=== PATIENT | female | born 1990 | race Caucasian/White ===

== ENCOUNTER 2019-06-02 19:19 | Emergency (ER) | payer SELFPAY ==
--- OUTSIDE RECORDS SUMMARY | 2019-06-02 19:22 | XMS REPORT | Summary of Care ---
:1990 Author Organization [facility] - [facility] Address [address] [place] [id number] Care Team Providers Name Role Phone Pcp, Patient Does Not Have A Primary Care Provider Reason for Visit Reason Comments Ear Pain Sore Throat Auth/Cert Status Reason Specialty Diagnoses / Referred By Referred To Procedures Contact Contact [facility] [address] [place] [address] [place] [address] Encounter Details Date Type Department Care Team Description 02/07/2019 Emergency [facility] Allen Weiss DO Strep pharyngitis (Primary Dx); Department [address] [place] [address]. Pharyngitis, unspecified etiology [address] [place] [address] [address] [place] [address] [place], [place] [id number] Allergies No Known Allergiesdocumented as of this encounter (statuses as of 02/07/2019) Medications Medication Sig Dispensed Refills Start Date End Date Status benzocaine-menthol Take 1 Lozenge by 30 Lozenge 0 02/07/2019 Active (CEPACOL SORE THROAT, mouth every 4 FREDRICK-MEN,) (four) hours as lozengeIndications: needed for Sore Strep pharyngitis throat. documented as of this encounter (statuses as of 02/07/2019) Active Problems Not on filedocumented as of this encounter (statuses as of 02/07/2019) Social History Tobacco Use Types Packs/Day Years Used Date Never Assessed Sex Assigned at Date Recorded Not on file Job Start Date Occupation Industry Not on file Not on file Not on file Travel History Travel Start Travel End No recent travel history available. documented as of this encounter Last Filed Vital Signs Vital Sign Reading Time Taken Comments Blood Pressure 140/78 02/07/2019 9:26 AM CDT Pulse 100 02/07/2019 9:26 AM CDT Temperature 36.9 C (98.5 F) 02/07/2019 9:26 AM CDT Respiratory Rate 18 02/07/2019 9:26 AM CDT Oxygen Saturation 99% 02/07/2019 9:26 AM CDT Inhaled Oxygen Concentration - - Weight 106.6 kg (235 lb) 02/07/2019 9:26 AM CDT Height 162.6 cm (5' 4") 02/07/2019 9:26 AM CDT Body Mass Index 40.34 02/07/2019 9:26 AM CDT documented in this encounter Discharge Instructions Allen Flores DO - 02/07/2019 DIAGNOSIS Diagnoses that have been ruled out: None Diagnoses that are still under consideration: None Final diagnoses: Pharyngitis, unspecified etiology Strep pharyngitis NO LIFE-THREATENING FINDINGS ON TODAY'S EXAM. PROCEDURES IN THE ER TODAY: Orders Placed This Encounter Procedures RAPID STREP SCREEN FOR GROUP A MEDICATIONS ADMINISTERED IN THE ER TODAY AND DISCHARGE MEDICATIONS: Orders Placed This Encounter Medications dexamethasone (DECADRON PHOSPHATE) injection 10 mg penicillin g benzathine (BICILLIN L-A) injection 1.2 Million Units FOLLOW-UP RECOMMENDATIONS: RECOMMEND FOLLOW-UP WITH A PRIMARY CARE PROVIDER OR SPECIALIST IN 2-5 DAYS, ESPECIALLY IF NO IMPROVEMENT IN SYMPTOMS. MAY FOLLOW-UP WITH A PROVIDER OF YOUR CHOICE, SUCH : 1. A PHYSICIAN OF YOUR CHOICE 2. [facility], . LOCATIONS IN [facility] 3. [facility], [address] [place] [address]; OR, IF YOU WISH TO FOLLOW-UP WITHIN THE [facility], MAY TRY THESE OPTIONS (CLINIC APPOINTMENTS AVAILABLE ON VPOK-LM-REPT BASIS): 1. SCHEDULE AN APPOINTMENT ONLINE AT [email or web address] 2. OR CALL THE [facility] AT OR 3. OR CALL YOUR [facility] PHYSICIAN'S OFFICE DIRECTLY IF YOU ARE ALREADY AN ESTABLISHED [facility] PATIENT. RETURN TO ER FOR WORSENING OF SYMPTOMS. AttachmentsThe following attachments cannot be sent through Care Everywhere.Strep Throat (Norwegian)documented in this encounter Plan of Treatment Health Maintenance Due Date Last Done Comments VARICELLA VACCINES (1 of 2 - 13+ 01/30/2005 2-dose series) DTaP,Tdap,and Td Vaccines (1 - 01/30/2011 Tdap) PAP SMEAR 01/30/2013 INFLUENZA VACCINE 03/16/2019 PNEUMOCOCCAL 0-64 YEARS COMBINED Aged Out No longer eligible based on SERIES patient's age to complete this topic documented as of this encounter Procedures Procedure Name Priority Date/Time Associated Diagnosis Comments RAPID STREP SCREEN STAT 02/07/2019 10:10 AM Pharyngitis, Results for this FOR GROUP A CDT unspecified etiology procedure are in the results section. NOTICE OF PRIVACY Routine 02/07/2019 9:22 AM PRACTICES CDT CONSENT/REFUSAL FOR Routine 02/07/2019 9:21 AM DIAGNOSIS AND CDT TREATMENT documented in this encounter Results RAPID STREP SCREEN FOR GROUP A (02/07/2019 10:10 AM CDT) Streptococcus pyogenes Positive (A) Negative [facility] (group A) antigen HOSPITAL LABORATORY Specimen Swab - THROAT Performing Organization Address City/State/Zipcode Phone Number [facility] CLIA: [id number], [address] [place] [address] documented in this encounter Visit Diagnoses Diagnosis Strep pharyngitis - Primary Streptococcal sore throat Pharyngitis, unspecified etiology documented in this encounter Administered Medications Medication Order MAR Action Action Date Dose Rate Site dexamethasone (DECADRON PHOSPHATE) Given 02/07/2019 10:10 AM CDT 10 mg injection 10 mg 10 mg, Oral, ONCE, 1 dose, Sun02/07/19 at 1100, Routine penicillin g benzathine Given 02/07/2019 10:57 1.2 Million Left Dorsogluteal-IM (BICILLIN L-A) AM CDT Units injection 1.2 Million Units 1.2 Million Units, Intramuscular, ONCE, 1 dose, Sun02/07/19 at 1145, JOSE, Reason for Anti-Infective: Documented Infection, Documented Infection Site: HEENT, Duration of Therapy: 7 days documented in this encounter
--- OUTSIDE RECORDS SUMMARY | 2019-06-02 19:22 | XMS REPORT ---
:1990 [facility] Address [address] [place] [address] Dr. Tomlinson [address] [place] [id number] Care Team Providers Name Role Phone Unavailable Unavailable Unavailable Problems This patient has no known problems. Allergies, Adverse Reactions, Alerts This patient has no known allergies or adverse reactions. Medications This patient has no known medications.
[2019-06-02] MEDS ORDERED: ACETAMINOPHEN 500 MG TAB ONE (20:19)
[2019-06-02] MEDS ORDERED: KETOROLAC 30 MG/ML INJ ONE (20:19)
[2019-06-02] MEDS ORDERED: PEN G BENZ LA 1.2MU/2ML SYRINGE IM ONE (20:34)
--- NOTE | 2019-06-02 20:53 | EDPHYS ---
Physician Documentation [facility] Name: Lila Nieto Age: 29 yrs Sex: Female : 1990 Arrival Date: 06/02/2019 Time: 19:21 Bed 25 Private MD: ED Physician Angel Polanco HPI: 06/02 21:11 This 29 yrs old Female presents to ER via Ambulatory with complaints of Flu tw4 Symptoms. 21:11 The patient or guardian reports flu symptoms, low-grade fever, myalgias. Onset: The tw4 symptoms/episode began/occurred this morning, today. Modifying factors: The symptoms are alleviated by nothing. the symptoms are aggravated by nothing. Associated signs and symptoms: The patient has no apparent associated signs or symptoms. Severity of symptoms: At their worst the symptoms were moderate in the emergency department the symptoms are unchanged. The patient has not experienced similar symptoms in the past. WRAPPER OFF: 19:30 LMP 05/30/2019 ss Historical: - Allergies: 19:30 Iodine; ss - Home Meds: 19:30 None [Active]; ss - PMHx: 19:30 None; ss - PSHx: 19:30 bilateral feet; ss - Immunization history:: Adult Immunizations up to date. - Social history:: Smoking status: Patient uses tobacco products, denies chronic smoking, but will smoke occasionally. - Ebola Screening: : Patient denies exposure to infectious person Patient denies travel to an Ebola-affected area in the 21 days before illness onset. ROS: 21:11 Eyes: Negative for injury, pain, redness, and discharge. tw4 21:11 Cardiovascular: Negative for chest pain, palpitations, and edema, Respiratory: Negative for shortness of breath, cough, wheezing, and pleuritic chest pain, Abdomen/GI: Negative for abdominal pain, nausea, vomiting, diarrhea, and constipation, Back: Negative for injury and pain, MS/Extremity: Negative for injury and deformity, Skin: Negative for injury, rash, and discoloration, Neuro: Negative for headache, weakness, numbness, tingling, and seizure. 21:11 Constitutional: Positive for body aches, fatigue, fever, malaise. Exam: 21:11 Constitutional: This is a well developed, well nourished patient who is awake, alert, tw4 and in no acute distress. Head/Face: Normocephalic, atraumatic. Chest/axilla: Normal chest wall appearance and motion. Nontender with no deformity. No lesions are appreciated. Cardiovascular: Regular rate and rhythm with a normal S1 and S2. No gallops, murmurs, or rubs. Normal PMI, no JVD. No pulse deficits. Respiratory: Lungs have equal breath sounds bilaterally, clear to auscultation and percussion. No rales, rhonchi or wheezes noted. No increased work of breathing, no retractions or nasal flaring. Abdomen/GI: Soft, non-tender, with normal bowel sounds. No distension or tympany. No guarding or rebound. No evidence of tenderness throughout. Skin: Warm, dry with normal turgor. Normal color with no rashes, no lesions, and no evidence of cellulitis. MS/ Extremity: Pulses equal, no cyanosis. Neurovascular intact. Full, normal range of motion. Neuro: Awake and alert, GCS 15, oriented to person, place, time, and situation. Cranial nerves II-XII grossly intact. Motor strength 5/5 in all extremities. Sensory grossly intact. Cerebellar exam normal. Normal gait. 21:11 ENT: External ear(s): are unremarkable, Ear canal(s): are normal, TM's: Posterior pharynx: erythema, that is moderate. Vital Signs: 19:30 BP 159 / 91; Pulse 129; Resp 15; Temp 101.1(O); Pulse Ox 97% on R/A; Weight 106.59 kg; ss Height 5 ft. 4 in. (162.56 cm); Pain 10/10; 21:19 Pulse 108; Resp 26; Pulse Ox 100% on R/A; aj1 19:30 Body Mass Index 40.34 (106.59 kg, 162.56 cm) ss MDM: 19:38 Patient medically screened. tw4 21:11 Differential diagnosis: obstructed airway, tracheal injury. Antibiotic administration: tw4 The patient is discharged and will get outpatient antibiotics. Data reviewed: vital signs, nurses notes. Data reviewed: lab test result(s), Flu: negative strep positive. Counseling: I had a detailed discussion with the patient and/or guardian regarding: the historical points, exam findings, and any diagnostic results supporting the discharge/admit diagnosis. Special discussion: I discussed with the patient/guardian in detail that at this point there is no indication for admission to the hospital. It is understood, however, that if the symptoms persist or worsen the patient needs to return immediately for re-evaluation. 06/02 19:37 Order name: Flu fc 06/02 19:37 Order name: Strep; Complete Time: 20:26 fc Administered Medications: 20:23 Drug: Tylenol 1000 mg Route: PO; aj1 20:39 Follow up: Response: No adverse reaction aj1 :23 Drug: TORadol 60 mg Route: IM; Site: left gluteus; aj1 20:39 Follow up: Response: No adverse reaction aj1 20:39 Drug: Bicillin L-A 1.2 million units Route: IM; Site: right gluteus; aj1 :18 Follow up: Response: No adverse reaction aj1 Disposition: 06/02/19 20:52 Discharged to Home. Impression: Streptococcal pharyngitis. - Condition is Stable. - Discharge Instructions: Fever, Adult, Pharyngitis, Strep Throat. - Prescriptions for Ibuprofen 800 mg Oral Tablet - take 1 tablet by ORAL route every 8 hours As needed take with food; 30 tablet. - Medication Reconciliation Form, Thank You Letter, Antibiotic Education, Prescription Opioid Use form. - Follow up: Private Physician; When: Upon discharge from the Emergency Department; Reason: Recheck today's complaints, Continuance of care. - Problem is new. - Symptoms have improved. Signatures: Dispatcher [employer] EDNella Bernstein RN RN aj1 Lila Salter RN RN Angel Polanco MD MD tw4 Corrections: (The following items were deleted from the chart) 21:20 20:52 06/02/2019 20:52 Discharged to Home. Impression: Streptococcal pharyngitis. aj1 Condition is Stable. Forms are Medication Reconciliation Form, Thank You Letter, Antibiotic Education, Prescription Opioid Use. Follow up: Private Physician; When: Upon discharge from the Emergency Department; Reason: Recheck today's complaints, Continuance of care. Problem is new. Symptoms have improved. tw4
--- NOTE | 2019-06-02 20:53 | ER ---
Nurse's Notes [facility] Name: Lila Nieto Age: 29 yrs Sex: Female : 1990 Arrival Date: 06/02/2019 Time: 19:21 Bed 25 Private MD: Diagnosis: Streptococcal pharyngitis Presentation: 06/02 19:27 Presenting complaint: Patient states: Body aches, cold sweats and hot flashes that ss began at 1200 today. Fever began 1 hour ago TMAX 101.9. Transition of care: patient was not received from another setting of care. Onset of symptoms was June 02, 2019. Risk Assessment: Do you want to hurt yourself or someone else? Patient reports no desire to harm self or others. Initial Sepsis Screen: Does the patient meet any 2 criteria? Temp <36.0*C (96.8*F)) or > 38.3*C (100.9*F). HR > 90 bpm. Does the patient have a suspected source of infection? No. Patient's initial sepsis screen is negative. Care prior to arrival: None. 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 - Social history:: Smoking status: Patient uses tobacco products, denies chronic smoking, but will smoke occasionally. - Ebola Screening: : Patient denies exposure to infectious person Patient denies travel to an Ebola-affected area in the 21 days before illness onset. Screenin:45 Abuse screen: Denies threats or abuse. Denies injuries from another. Nutritional aj1 screening: No deficits noted. Tuberculosis screening: No symptoms or risk factors identified. 21:19 Fall Risk None identified. aj1 Assessment: 19:45 General: Appears in no apparent distress. uncomfortable, Behavior is calm, cooperative, aj1 appropriate for age, Reports feeling ill for 2-3 days, fatigue for 2-3 days. Pain: Complains of pain in generalized body aches. Neuro: Level of Consciousness is awake, alert, obeys commands, Oriented to person, place, time, situation. Cardiovascular: Patient's skin is warm and dry. Respiratory: Airway is patent Respiratory effort is even, unlabored, Respiratory pattern is regular, symmetrical. GI: No signs and/or symptoms were reported involving the gastrointestinal system. : No signs and/or symptoms were reported regarding the genitourinary system. EENT: Throat is reddened bilaterally Reports nasal congestion nasal discharge. Derm: No signs and/or symptoms reported regarding the dermatologic system. Skin is pink, warm \T\ dry. normal. Musculoskeletal: No signs and/or symptoms reported regarding the musculoskeletal system. Circulation, motion, and sensation intact. Vital Signs: 19:30 BP 159 / 91; Pulse 129; Resp 15; Temp 101.1(O); Pulse Ox 97% on R/A; Weight 106.59 kg; ss Height 5 ft. 4 in. (162.56 cm); Pain 10/10; 21:19 Pulse 108; Resp 26; Pulse Ox 100% on R/A; aj1 19:30 Body Mass Index 40.34 (106.59 kg, 162.56 cm) ED Course: 19:21 Patient arrived in ED. cf2 19:29 Triage completed. ss 19:30 Arm band placed on right wrist. ss 19:32 Nella Muniz, RN is Primary Nurse. aj1 19:38 Angel Polanco MD is Attending Physician. tw4 19:45 Patient has correct armband on for positive identification. Bed in low position. Call aj1 light in reach. Side rails up X 1. 19:45 No provider procedures requiring assistance completed. aj1 21:19 Patient did not have IV access during this emergency room visit. aj1 Administered Medications: 20:23 Drug: Tylenol 1000 mg Route: PO; aj1 20:39 Follow up: Response: No adverse reaction aj1 20:23 Drug: TORadol 60 mg Route: IM; Site: left gluteus; aj1 20:39 Follow up: Response: No adverse reaction aj1 20:39 Drug: Bicillin L-A 1.2 million units Route: IM; Site: right gluteus; aj1 21:18 Follow up: Response: No adverse reaction aj1 Outcome: 20:52 Discharge ordered by . tw4 21:19 Discharged to home ambulatory. aj1 21:19 Condition: good 21:19 Discharge instructions given to patient, Instructed on discharge instructions, follow up and referral plans. medication usage, Demonstrated understanding of instructions, follow-up care, medications, Prescriptions given X 1. 21:20 Patient left the ED. aj1 Signatures: Nella Muniz RN RN aj1 Lila Salter RN RN Angel Polanco MD MD tw4 Rashad Lira 2
[2019-06-03 00:37] VITALS: BP 159/91; TEMP 101.1
[2019-06-03 00:38] VITALS: O2SAT 100
== END 2019-06-02 21:20 | disposition home or self-care (01) ==
LOC: ER 19:19
DX: J02.0 Streptococcal pharyngitis (principal); Z72.0 Tobacco use; Z91.048 Other nonmedicinal substance allergy status
CPT/HCPCS: 87081; 87804; 96372; 99283; J0561

== ENCOUNTER 2020-05-17 14:31 | Emergency (ER) | payer SELFPAY ==
[2020-05-17] MEDS ORDERED: ACETAMINOPHEN 325 MG TABLET ONE (17:07)
[2020-05-17] MEDS ORDERED: CEFTRIAXONE 1000 MG/VIAL ONE (17:29)
[2020-05-17] MEDS ORDERED: AZITHROMYCIN 250 MG TAB ONE (17:32)
[2020-05-17] MEDS ORDERED: LIDOCAINE 1% MPF 2 ML AMPULE ONE (17:34)
--- NOTE | 2020-05-17 17:40 | ER ---
Nurse's Notes [facility] Name: Lila Nieto Age: 30 yrs Sex: Female : 1990 Arrival Date: 05/17/2020 Time: 14:34 Bed 15 Private MD: Diagnosis: Fever, unspecified;Acute upper respiratory infection, unspecified Presentation: 05/17 14:46 Chief complaint: Patient states: nasal drainage, sore throat, generalized weakness x 2 sv days. Coronavirus screen: Client denies travel out of the [place] in the last 14 days. Client presents with at least one sign or symptom that may indicate coronavirus-19. Standard/surgical mask placed on the client. Provider contacted for isolation considerations. Ebola Screen: No symptoms or risks identified at this time. Risk Assessment: Do you want to hurt yourself or someone else? Patient reports no desire to harm self or others. Onset of symptoms was May 15, 2020. 14:46 Method Of Arrival: Ambulatory sv 14:46 Acuity: STUART 3 sv 14:47 Initial Sepsis Screen: Does the patient meet any 2 criteria? HR > 90 bpm. No. Patient's sv initial sepsis screen is negative. Does the patient have a suspected source of infection? No. Patient's initial sepsis screen is negative. Triage Assessment: 14:50 General: Appears in no apparent distress. comfortable, Behavior is calm, cooperative, sv appropriate for age. EENT: Reports nasal discharge pain when swallowing. Neuro: Level of Consciousness is awake, alert, obeys commands, Oriented to person, place, time, situation, Gait is steady. Respiratory: Respiratory effort is even, unlabored. Historical: - Allergies: 14:46 Iodine; sv 14:46 Morphine; sv 14:46 hydromorphone HCl; sv - PSHx: 14:46 bilateral feet; sv - Immunization history:: Adult Immunizations unknown. - Social history:: Smoking status: Patient reports the use of cigarette tobacco products, denies chronic smoking, but will smoke occasionally. - Family history:: not pertinent. Screenin:47 Abuse screen: Denies threats or abuse. Denies injuries from another. Nutritional zb screening: No deficits noted. Tuberculosis screening: No symptoms or risk factors identified. Fall Risk None identified. Assessment: 16:44 General: Appears in no apparent distress. comfortable, well groomed, Behavior is calm, zb cooperative, appropriate for age, Reports fatigue for 1-2 days, Denies fever. Pain: Denies pain. Neuro: No deficits noted. Level of Consciousness is awake, alert, obeys commands, Oriented to person, place, time, situation. Cardiovascular: No deficits noted. Denies chest pain, shortness of breath. Respiratory: Airway is patent Trachea midline Respiratory effort is even, unlabored, Respiratory pattern is regular. GI: No deficits noted. No signs and/or symptoms were reported involving the gastrointestinal system. Patient currently denies diarrhea, intolerance of fluids, intolerance of food. : No deficits noted. No signs and/or symptoms were reported regarding the genitourinary system. EENT: Throat is reddened bilaterally. Derm: Skin is intact, is healthy with good turgor, Skin is pink, warm \T\ dry. Skin temperature is warm. Musculoskeletal: Circulation, motion, and sensation intact. Capillary refill < 3 seconds, in bilateral fingers. 18:00 Reassessment: Patient appears in no apparent distress at this time. Patient and/or ph family updated on plan of care and expected duration. Pain level reassessed. Patient is alert, oriented x 3, equal unlabored respirations, skin warm/dry/pink. Vital Signs: 14:47 BP 149 / 103; Pulse 100; Resp 16; Temp 99.3; Pulse Ox 100% ; Weight 111.13 kg; Height 5 sv ft. 4 in. (162.56 cm); 17:03 BP 137 / 100; Pulse 105; Resp 18; Pulse Ox 95% on R/A; ph 18:00 BP 124 / 89; Pulse 87; Resp 18; Temp 98.0; Pulse Ox 99% on R/A; ph 14:47 Body Mass Index 42.05 (111.13 kg, 162.56 cm) sv ED Course: 14:34 Patient arrived in ED. ds1 14:44 Arm band placed on. sv 14:47 Triage completed. sv 16:21 Ronnell Conte MD is Attending Physician. marion 16:43 Tori Stewart RN is Primary Nurse. zb 16:47 Patient has correct armband on for positive identification. Bed in low position. Call zb light in reach. Side rails up X 1. Pulse ox on. NIBP on. Door closed. Noise minimized. Head of bed elevated. Patient placed on droplet and contact precautions with eye protection. 17:13 Chest Single View XRAY In Process Unspecified. EDMS 17:39 Desean Ruff DO is Referral Physician. [facility] 18:00 No provider procedures requiring assistance completed. Patient did not have IV access ph during this emergency room visit. Administered Medications: 16:53 Drug: Tylenol 650 mg Route: PO; zb 18:27 Follow up: Response: No adverse reaction; Temperature is decreased ph 17:30 Drug: Rocephin (cefTRIAXone) 1 grams Route: IM; Site: right gluteus; ph 17:55 Follow up: Response: No adverse reaction ph 17:54 Drug: Zithromax 500 mg Route: PO; ph 17:54 Follow up: Response: No adverse reaction ph Outcome: 17:39 Discharge ordered by . marion 18:25 Patient left the ED. ph 18:25 Discharged to home ambulatory. ph 18:25 Condition: good 18:25 Discharge instructions given to patient, Instructed on discharge instructions, follow up and referral plans. medication usage, Demonstrated understanding of instructions, follow-up care, medications, Prescriptions given X 2. Addendum: 05/21/2020 16:37 Addendum: COVID-19 Result: Negative result given to RN to notify pt. Attempted to s s contact pt regarding negative COVID-19 swab results. Unable to leave voice mail due to the number provided was either not a working number, the voice mail has not been set up, or the voice mailbox is full.. Signatures: Dispatcher [facility] Lacey Trent RN RN sv Anderson, Corey, MD MD cha Sanford, Demi ds1 Lila Salter RN RN ss Hall, Patricia, RN RN ph Brown, Zipporah, RN RN zb Corrections: (The following items were deleted from the chart) 05/17 14:49 14:46 Acuity: STUART 4 sv sv 14:49 14:47 Pulse 100bpm; Resp 16bpm; Pulse Ox 100%; Temp 99.3F; 111.13 kg; Height 5 ft. 4 sv in.; BMI: 42.0; sv 16:50 16:44 EENT: Throat is pink zb zb
--- NOTE | 2020-05-17 17:41 | EDPHYS ---
Physician Documentation [facility] Name: Lila Nieto Age: 30 yrs Sex: Female : 1990 Arrival Date: 05/17/2020 Time: 14:34 Bed 15 Private MD: Ronnell Lara HPI: 05/17 17:31 This 30 yrs old Female presents to ER via Ambulatory with complaints of Sore marion Throat. 17:31 The patient presents with sore throat. The patient describes throat pain as burning. marion Onset: The symptoms/episode began/occurred 2 day(s) ago. Severity of symptoms: At their worst the symptoms were mild. Modifying factors: The symptoms are alleviated by nothing, the symptoms are aggravated by foods, swallowing. Associated signs and symptoms: The patient has no apparent associated signs or symptoms. The patient has not experienced similar symptoms in the past. Historical: - Allergies: 14:46 Iodine; sv 14:46 Morphine; sv 14:46 hydromorphone HCl; sv - PSHx: 14:46 bilateral feet; sv - Immunization history:: Adult Immunizations unknown. - Social history:: Smoking status: Patient reports the use of cigarette tobacco products, denies chronic smoking, but will smoke occasionally. - Family history:: not pertinent. ROS: 17:31 Eyes: Negative for injury, pain, redness, and discharge, ENT: Negative for injury, marion pain, and discharge, Neck: Negative for injury, pain, and swelling, Cardiovascular: Negative for chest pain, palpitations, and edema, Abdomen/GI: Negative for abdominal pain, nausea, vomiting, diarrhea, and constipation, Back: Negative for injury and pain, : Negative for injury, bleeding, discharge, and swelling, MS/Extremity: Negative for injury and deformity, Skin: Negative for injury, rash, and discoloration, Neuro: Negative for headache, weakness, numbness, tingling, and seizure, Psych: Negative for depression, anxiety, suicide ideation, homicidal ideation, and hallucinations, Allergy/Immunology: Negative for hives, rash, and allergies, Endocrine: Negative for neck swelling, polydipsia, polyuria, polyphagia, and marked weight changes, Hematologic/Lymphatic: Negative for swollen nodes, abnormal bleeding, and unusual bruising. 17:31 Respiratory: Positive for cough, shortness of breath, at rest. Exam: 17:31 Head/Face: Normocephalic, atraumatic. Eyes: Pupils equal round and reactive to light, marion extra-ocular motions intact. Lids and lashes normal. Conjunctiva and sclera are non-icteric and not injected. Cornea within normal limits. Periorbital areas with no swelling, redness, or edema. Neck: Trachea midline, no thyromegaly or masses palpated, and no cervical lymphadenopathy. Supple, full range of motion without nuchal rigidity, or vertebral point tenderness. No Meningismus. Chest/axilla: Normal chest wall appearance and motion. Nontender with no deformity. No lesions are appreciated. Cardiovascular: Regular rate and rhythm with a normal S1 and S2. No gallops, murmurs, or rubs. Normal PMI, no JVD. No pulse deficits. Abdomen/GI: Soft, non-tender, with normal bowel sounds. No distension or tympany. No guarding or rebound. No evidence of tenderness throughout. Back: No spinal tenderness. No costovertebral tenderness. Full range of motion. Skin: Warm, dry with normal turgor. Normal color with no rashes, no lesions, and no evidence of cellulitis. MS/ Extremity: Pulses equal, no cyanosis. Neurovascular intact. Full, normal range of motion. Neuro: Awake and alert, GCS 15, oriented to person, place, time, and situation. Cranial nerves II-XII grossly intact. Motor strength 5/5 in all extremities. Sensory grossly intact. Cerebellar exam normal. Normal gait. Psych: Awake, alert, with orientation to person, place and time. Behavior, mood, and affect are within normal limits. 17:31 Constitutional: The patient appears febrile. 17:31 Respiratory: the patient does not display signs of respiratory distress, Respirations: normal, Breath sounds: bronchial sounds, rhonchi, that are mild. Vital Signs: 14:47 BP 149 / 103; Pulse 100; Resp 16; Temp 99.3; Pulse Ox 100% ; Weight 111.13 kg; Height 5 sv ft. 4 in. (162.56 cm); 17:03 BP 137 / 100; Pulse 105; Resp 18; Pulse Ox 95% on R/A; ph 18:00 BP 124 / 89; Pulse 87; Resp 18; Temp 98.0; Pulse Ox 99% on R/A; ph 14:47 Body Mass Index 42.05 (111.13 kg, 162.56 cm) sv MDM: 16:[address] [facility] 17:31 Differential diagnosis: Allergic rhinitis, bronchitis, group A strep tonsillitis, marion influenza, pharyngitis, tonsillitis, uvulitis. Data reviewed: vital signs, nurses notes, lab test result(s), radiologic studies, plain films. Data interpreted: property assessment monitor: rate is 105 beats/min, rhythm is regular. Test interpretation: by ED physician or midlevel provider: plain radiologic studies. Counseling: I had a detailed discussion with the patient and/or guardian regarding: the historical points, exam findings, and any diagnostic results supporting the discharge/admit diagnosis, lab results, radiology results, the need for outpatient follow up, for definitive care, a family practitioner. 05/17 16:22 Order name: Strep; Complete Time: 17:38 [facility] 05/17 16:22 Order name: Flu; Complete Time: 17:38 [facility] 05/17 16:22 Order name: COVID-19 [facility] 05/17 16:58 Order name: Chest Single View XRAY [facility] 05/17 17:32 Order name: Throat Culture [facility] 05/17 16:58 Order name: Urine Dipstick-Ancillary (obtain specimen); Complete Time: 18:28 [facility] 05/17 16:58 Order name: Urine Test (obtain specimen); Complete Time: 18:28 [facility] Administered Medications: 16:53 Drug: Tylenol 650 mg Route: PO; zb 18:27 Follow up: Response: No adverse reaction; Temperature is decreased ph 17:30 Drug: Rocephin (cefTRIAXone) 1 grams Route: IM; Site: right gluteus; ph 17:55 Follow up: Response: No adverse reaction ph 17:54 Drug: Zithromax 500 mg Route: PO; ph 17:54 Follow up: Response: No adverse reaction ph Disposition: 05/17/20 17:39 Discharged to Home. Impression: Fever, unspecified, Acute upper respiratory infection, unspecified. - Condition is Stable. - Discharge Instructions: Fever, Adult, Upper Respiratory Infection, Adult, Cool Mist Vaporizer, Upper Respiratory Infection, Adult, [id number], Cough, Adult. - Prescriptions for Medrol (Loco) 4 mg Oral Tablets, Dose Pack - take 1 tablet by ORAL route as directed - follow package instructions; 1 packet. Zithromax 500 mg Oral Tablet - take 1 tablet by ORAL route once daily for 4 days; 4 tablet. - Medication Reconciliation Form, Thank You Letter, Antibiotic Education, Prescription Opioid Use, Work release form form. - Follow up: Private Physician; When: 2 - 3 days; Reason: Recheck today's complaints, Continuance of care, Re-evaluation by your physician. Follow up: Desean Ruff DO; When: 2 - 3 days; Reason: Recheck today's complaints, Re-evaluation by your physician. - Problem is new. - Symptoms have improved. Signatures: Dispatcher [employer] EDLacey Graves RN RN Ronnell Hoffman MD MD cha Hall, Patricia, RN RN Tori Cordoba RN RN ale Corrections: (The following items were deleted from the chart) 18:25 17:39 05/17/2020 17:39 Discharged to Home. Impression: Fever, unspecified; Acute upper ph respiratory infection, unspecified. Condition is Stable. Forms are Medication Reconciliation Form, Thank You Letter, Antibiotic Education, Prescription Opioid Use. Follow up: Private Physician; When: 2 - 3 days; Reason: Recheck today's complaints, Continuance of care, Re-evaluation by your physician. Follow up: Desean Ruff; When: 2 - 3 days; Reason: Recheck today's complaints, Re-evaluation by your physician. Problem is new. Symptoms have improved. marion
--- NOTE | 2020-05-17 18:16 | RAD REPORT ---
EXAM DESCRIPTION: RAD - Chest Single View - 05/17/2020 5:12 pm CLINICAL HISTORY: COUGH, weakness COMPARISON: November 2012 TECHNIQUE: AP portable chest image was obtained 05/17/2020 5:12 pm . FINDINGS: Lungs are clear. Heart and vasculature are normal. No measurable pleural effusion and no p neumothorax. No acute bony abnormality seen. No acute aortic findings suspected. IMPRESSION: No acute cardiopulmonary process.
[2020-05-17 18:55] VITALS: BP 124/89; TEMP 98; O2SAT 99
== END 2020-05-17 18:25 | disposition home or self-care (01) ==
LOC: ER 14:31
DX: J06.9 Acute upper respiratory infection, unspecified (principal); Z20.828 Contact with and (suspected) exposure to other viral communicable diseases; F17.210 Nicotine dependence, cigarettes, uncomplicated; Z88.5 Allergy status to narcotic agent; Z91.048 Other nonmedicinal substance allergy status
CPT/HCPCS: 71045; 87070; 87081; 87804; 96372; 99284; J2001; U0002

== ENCOUNTER 2022-01-19 17:40 | Emergency (ER) | payer SELFPAY ==
--- NOTE | 2022-01-19 19:52 | ER ---
Nurse's Notes [facility] Name: Lila Nieto Age: 31 yrs Sex: Female : 1990 Arrival Date: 01/19/2022 Time: 17:42 Bed 11 Private MD: Diagnosis: Acute pharyngitis, unspecified Presentation: 01/19 18:27 Chief complaint: Patient states: sore throat and congestion that began yesterday. ss Coronavirus screen: Client denies travel out of the [place] in the last 14 days. Ebola Screen: Patient denies exposure to infectious person. Patient denies travel to an Ebola-affected area in the 21 days before illness onset. Initial Sepsis Screen: Does the patient meet any 2 criteria? No. Patient's initial sepsis screen is negative. Does the patient have a suspected source of infection? No. Patient's initial sepsis screen is negative. Risk Assessment: Do you want to hurt yourself or someone else? Patient reports no desire to harm self or others. Onset of symptoms was January 18, 2022. 18:27 Method Of Arrival: Ambulatory 18:27 Acuity: STUART 4 ss Triage Assessment: 20:23 General: Appears in no apparent distress. Behavior is calm, cooperative, appropriate tw5 for age, Smells of. Historical: - Allergies: 18:28 hydromorphone HCl; ss 18:28 Iodine; ss 18:28 Morphine; ss - Immunization history:: Client reports having NOT received the Covid vaccine. - Social history:: Smoking status: Patient denies any tobacco usage or history of. Screenin:17 Abuse screen: Denies threats or abuse. Nutritional screening: No deficits noted. [facility] Tuberculosis screening: No symptoms or risk factors identified. Fall Risk None identified. Assessment: 19:17 Pain: Complains of pain in left aspect of posterior pharynx and right aspect of bh1 posterior pharynx. Respiratory: Airway is patent Respiratory effort is even, Breath sounds are clear bilaterally. EENT: Throat is reddened. 20:23 Reassessment: Patient and/or family updated on plan of care and expected duration. Pain tw5 level reassessed. Patient is alert, oriented x 3, equal unlabored respirations, skin warm/dry/pink. Vital Signs: 18:27 Pulse 112; Resp 17; Temp 98.6(TE); Pulse Ox 100% on R/A; Weight 113.4 kg; Height 5 ft. ss 4 in. (162.56 cm); Pain 7/10; 18:28 BP 159 / 100; ss 19:17 BP 149 / 92; Pulse 76; Resp 18; Pulse Ox 100% on R/A; bh1 18:27 Body Mass Index 42.91 (113.40 kg, 162.56 cm) ED Course: 17:42 Patient arrived in ED. as 17:52 Bon Villa PA is PHCP. [facility] 17:52 Jeffy Newman DO is Attending Physician. [facility] 18:28 Triage completed. 18:28 Arm band placed on right wrist. 19:17 Carla Barillas, RN is Primary Nurse. 1 19:17 No apparent distress. Resting quietly. Awaiting lab results, Awaiting disposition. 1 19:17 Patient has correct armband on for positive identification. 1 19:17 No provider procedures requiring assistance completed. Patient did not have IV access [facility] during this emergency room visit. 20:23 Throat Culture Sent. tw5 Administered Medications: No medications were administered Medication: 19:17 VIS not applicable for this client. [facility] Outcome: 19:52 Discharge ordered by . [facility] 20:23 Discharged to home ambulatory. tw5 20:23 Condition: good 20:23 Discharge instructions given to patient, Instructed on discharge instructions, follow up and referral plans. medication usage, Demonstrated understanding of instructions, follow-up care, medications, Prescriptions given X 1. 20:23 Patient left the ED. tw5 Signatures: Bon Villa PA PA jmm Martinez, Amelia as Smirch, Shelby, RN RN Aicha Chacon [facility] Carla Barillas, ADELAIDA RN [facility]
--- NOTE | 2022-01-19 19:52 | EDPHYS ---
Physician Documentation [facility] Name: Lila Nieto Age: 31 yrs Sex: Female : 1990 Arrival Date: 01/19/2022 Time: 17:42 Bed 11 Private MD: ED Physician Jeffy Newman HPI: 01/19 19:48 This 31 yrs old Female presents to ER via Ambulatory with complaints of Sore Throat, jmm Congestion. 19:48 The patient presents with sore throat. Onset: The symptoms/episode began/occurred jmm gradually, 1 day(s) ago. Modifying factors: The symptoms are alleviated by nothing, the symptoms are aggravated by nothing. Associated signs and symptoms: Pertinent negatives fever. This is a 31 year old female with complaints of sore throat, congestion beginning approx 2 days ago. Patient states she tested negative for covid 1 week ago. . Historical: - Allergies: 18:28 hydromorphone HCl; ss 18:28 Iodine; ss 18:28 Morphine; ss - Immunization history:: Client reports having NOT received the Covid vaccine. - Social history:: Smoking status: Patient denies any tobacco usage or history of. ROS: 19:48 Constitutional: Positive for body aches, chills. jmm 19:48 ENT: Positive for sinus congestion, sore throat. 19:48 All other systems are negative. Exam: 19:48 Constitutional: This is a well developed, well nourished patient who is awake, alert, jmm and in no acute distress. Head/Face: atraumatic. Eyes: EOMI, no conjunctival erythema appreciated 19:48 Neck: Trachea midline, Supple Chest/axilla: Normal chest wall appearance and motion. Cardiovascular: Regular rate and rhythm. No edema appreciated Respiratory: Normal respirations, no respiratory distress appreciated Abdomen/GI: Non distended Back: Normal ROM Skin: General appearance color normal MS/ Extremity: Moves all extremities, no obvious deformities appreciated, no edema noted to the lower extremities Neuro: Awake and alert Psych: Behavior is normal, Mood is normal, Patient is cooperative and pleasant 19:48 ENT: Posterior pharynx: erythema, that is moderate. Vital Signs: 18:27 Pulse 112; Resp 17; Temp 98.6(TE); Pulse Ox 100% on R/A; Weight 113.4 kg; Height 5 ft. ss 4 in. (162.56 cm); Pain 7/10; 18:28 BP 159 / 100; ss 19:17 BP 149 / 92; Pulse 76; Resp 18; Pulse Ox 100% on R/A; bh1 18:27 Body Mass Index 42.91 (113.40 kg, 162.56 cm) ss MDM: 18:01 Patient medically screened. [facility] 19:50 Data reviewed: vital signs, nurses notes. Counseling: I had a detailed discussion with [facility] the patient and/or guardian regarding: the historical points, exam findings, and any diagnostic results supporting the discharge/admit diagnosis, lab results, the need for outpatient follow up, to return to the emergency department if symptoms worsen or persist or if there are any questions or concerns that arise at home. ED course: Patient is alert and non toxic in appearance in the ED. No signs of resp distress. Patient advised to follow up with pcp and otherwise given strict return precautions. Patient understood and agrees with the plan of care. 01/19 18:01 Order name: Strep; Complete Time: 19:26 [facility] 01/19 18:01 Order name: SARS-COV-2 RT PCR (Document "Date of Onset" if Symptomatic) [facility] 01/19 18:02 Order name: Influenza Screen (a \\T\\ B); Complete Time: 19:46 [facility] 01/19 19:13 Order name: Throat Culture [facility] Administered Medications: No medications were administered Disposition: 01/20 13:55 Co-signature as Attending Physician, Jeffy COLÓN was immediately available on-site ms3 in the Emergency Department for consultation in the care of the patient.. Disposition Summary: 01/19/22 19:52 Discharge Ordered Location: Home [facility] Condition: Stable [facility] Diagnosis - Acute pharyngitis, unspecified [facility] Followup: [facility] - With: Private Physician - When: 2 - 3 days - Reason: Recheck today's complaints, Continuance of care, Re-evaluation by your physician Discharge Instructions: - Discharge Summary Sheet [facility] - Pharyngitis [facility] Forms: - Medication Reconciliation Form [facility] - Thank You Letter [facility] - Antibiotic Education [facility] - Prescription Opioid Use [facility] Prescriptions: - cefdinir 300 mg Oral capsule - take 1 capsule by ORAL route every 12 hours for 10 days; 20 capsule; Refills: ronan 0, Product Selection Permitted Signatures: Dispatcher [employer] Bon Ornelas PA PA jmm Smirch, Shelby, ADELAIDA RN ss Jeffy Newman, DO ms3
[2022-01-19 21:16] VITALS: TEMP 98.6; O2SAT 100
[2022-01-19 21:19] VITALS: BP 149/92
== END 2022-01-19 20:23 | disposition home or self-care (01) ==
LOC: ER 17:40
DX: J02.9 Acute pharyngitis, unspecified (principal); Z88.5 Allergy status to narcotic agent; Z88.8 Allergy status to other drugs, medicaments and biological substances
CPT/HCPCS: 87070; 87081; 87804; U0003